=== PATIENT | female | born 1965 | race Caucasian/White ===

== ENCOUNTER 2016-10-16 07:09 | Emergency (ER) | payer OTHER ==
[~2016-10-16] VITALS: Wt 84.0 kg
[~2016-10-16 07:09] MED LIST: CETI5TAB20 PO; FLUT9.9S NASAL; PRED20TA PO
[2016-10-16] MEDS ORDERED: PSEU30TA38 PO (07:39)
[2016-10-16] MEDS ORDERED: BENZ100C70 PO (07:39)
[2016-10-16] MEDS ORDERED: D-ME473S18 PO (07:39)
[2016-10-16] MEDS ORDERED: FLUT9.9S NASAL (07:39)
[2016-10-16] MEDS ORDERED: IBUP-1542 PO (07:39)
--- NOTE | 2016-10-16 11:29 | ERD ---
DATE OF SERVICE: HISTORY OF PRESENT ILLNESS: The patient is a 51-year-old female coming in complaining of a cough wi th a sore throat. Patient states that she has been going on for the last 2 days. She has had a pro ductive cough, no shortness of breath, no fevers, has not taken any medication for symptoms, mild ru nny nose and no ear pain, no headaches, no neck stiffness, no positive sick contacts. PAST MEDICAL HISTORY: Denies. ALLERGIES: DENIES ALLERGIES TO MEDICATION. PAST SURGICAL HISTORY: Cosmetic surgery. SOCIAL HISTORY: Denies. REVIEW OF SYSTEMS: A 12-point review of systems was done. Refer to HPI for positives, all other sy stems negative. PHYSICAL EXAMINATION VITAL SIGNS: Temperature is 97.5, pulse 74, blood pressure is 146/84, respiratory 18, O2 saturation 98% on room air. Pain intensity 8/10. GENERAL: The patient is well-appearing, well-nourished, no acute distress. HEENT: Atraumatic. Conjunctivae are pink. Pupils equal, round, and reactive to light. There is no s cleral icterus. Tympanic membranes clear bilaterally. Oropharynx clear. No nystagmus or photophobia . CHEST: Clear to auscultation bilaterally. There are no rales, wheezes or rhonchi. HEART: Regular rate and rhythm. No murmurs, clicks, rubs or gallops. No S3 or S4. ABDOMEN: Soft, nontender and nondistended. Good bowel sounds. No rebound or guarding. No gross betsy tonitis. No gross organomegaly or masses. No Bergeron sign or McBurney point tenderness. BACK: No midline or flank tenderness. SKIN: There is no apparent rash or petechia. The skin is warm and dry. DIAGNOSIS: Upper respiratory infection. MEDICAL DECISION MAKING: I have low suspicion for pneumonia, low suspicion for bacterial HEENT infe ction, low suspicion for meningitis or sepsis. Patient's vital signs are stable. The patient is no ntoxic appearing. Patient's exam is nonconcerning and I feel that patient's symptoms are likely ass ociated with viral etiology. DISCHARGE: The patient is discharged stable. Patient given prescription for Flonase, Motrin, prome thazine DM, Sudafed and Tessalon and told to follow up with primary care within 1 to 2 days for reev aluation. The patient was told if symptoms progress or worsen to return to the ER. All other quest ions answered at time of discharge. Discharge summary given at the time of departure. Patient unde rstood and complied with plan. Dictated By: JOSE ELIAS SHIPMAN for RODNEY SHEPHERD/NTS Conf#: [id number] DID#: [id number]
== END 2016-10-16 08:06 | disposition home or self-care (01) ==
LOC: FTE 07:09
DX: J06.9 Acute upper respiratory infection, unspecified (principal)
CPT/HCPCS: 99284

== ENCOUNTER 2017-03-13 10:33 | Emergency (ER) | payer OTHER ==
[~2017-03-13] VITALS: Ht 160 cm; Wt 90.0 kg
[~2017-03-13 10:33] MED LIST changes: +BENZ100C70 PO; +D-ME473S18 PO; +IBUP-1542 PO; +PSEU30TA38 PO
[2017-03-13 10:44] VITALS: Ht 160 cm; Wt 90.0 kg
[2017-03-13] MEDS ORDERED: DIPH25CA6 PO (12:16)
[2017-03-13] MEDS ORDERED: PRED20TA PO (12:16)
[2017-03-13] MEDS ORDERED: HC30CR25 TOP (12:16)
--- NOTE | 2017-03-13 12:19 | ERD ---
ER Documentation Chief Complaint Date/Time DATE: 03/13/17 TIME: 12:17 Chief Complaint RASH AND ITCHING HPI This 52-year-old female presents with an itchy rash over the last week or so. She is considering whether she is allergic to a vitamin she is taking. She denies any fevers, cough, shortness of breath. She denies any known previous allergies . ROS All systems reviewed and are negative except as per history of present illness. Medications Home Meds Active Scripts Prednisone* (Prednisone*) 20 Mg Tab, 40 MG PO DAILY for 5 Days, TAB Prov:LESLIE BAIRES MD 03/13/17 Diphenhydramine Hcl* (Diphenhydramine Hcl*) 25 Mg Capsule, 25 MG PO Q6 Y for ITCHING, #20 CAP Prov:LESLIE BAIRES MD 03/13/17 Hydrocortisone* Topical (Hydrocortisone* Topical) 2.5%-28.3 Gm Cream..g., 1 APPLIC TOP BID for 7 Days, #1 TUB Prov:LESLIE BAIRES MD 03/13/17 Ibuprofen* (Motrin*) 600 Mg Tab, 600 MG PO Q6, #30 TAB Prov:GILMAR SHULTZ PA-C 10/16/16 Benzonatate* (Tessalon Perle*) 100 Mg Capsule, 100 MG PO Q8H Y for COUGH, #30 CAP Prov:GILMAR SHULTZ PA-C 10/16/16 Dextromethorphan Hb-Promethazine Hcl (Promethazine DM Syrup) 473 Ml Syrup, 5 ML PO Q6H Y for COUGH, #4 OZ Prov:GILMAR SHULTZ PA-C 10/16/16 Fluticasone Propionate (Flonase Allergy Relief) 9.9 Ml [place].susp, 1 SPRAY NASAL DAILY, #1 BOTTLE TO EACH NOSTRIL Prov:GILMAR SHULTZ PA-C 10/16/16 Pseudoephedrine Hcl* (Pseudoephedrine Hcl*) 30 Mg Tablet, 30 MG PO Q6 Y for CONGESTION, #30 TAB Prov:GILMAR SHULTZ PA-C 10/16/16 Cetirizine Hcl* (Cetirizine Hcl*) 5 Mg Tablet, 5 MG PO DAILY Y for seasonal allergies, #30 TAB Prov:REMBERTO SETH MD 09/01/16 Prednisone* (Prednisone*) 20 Mg Tab, 40 MG PO DAILY for 4 Days, TAB Prov:REMBERTO SETH MD 09/01/16 Fluticasone Propionate (Flonase Allergy Relief) 9.9 Ml [place].susp, 1 SPRAY NASAL BID for 7 Days, #1 BOTTLE TO EACH NOSTRIL Prov:REMBERTO SETH MD 09/01/16 PMhx/Soc Medical and Surgical Hx: pt denies Medical Hx, pt denies Surgical Hx Hx Alcohol Use: No Hx Substance Use: No Hx Tobacco Use: No Smoking Status: Never smoker Physical Exam Vitals Vital Signs Date Time Temp Pulse Resp B/P Pulse Ox O2 Delivery O2 Flow Rate FiO2 03/13/17 10:44 98.1 74 20 138/74 99 Physical Exam Const: [], [id number] per Head: Atraumatic Eyes: Normal Conjunctiva ENT: Normal External Ears, Nose and Mouth. Neck: Full range of motion..~ No meningismus. Resp: Clear to auscultation bilaterally Cardio: Regular rate and rhythm, no murmurs Abd: Soft, non tender, non distended. Normal bowel sounds Skin: No petechiae or purpura. There are scattered areas of excoriated maculopapular rash on the extremities. There is no warmth, induration, streaking or vesicles. There are no palmar lesions Back: No midline or flank tenderness Ext: No cyanosis, or edema Neur: Awake and alert Psych: Normal Mood and Affect Procedures/MDM Patient presents with a nonspecific dermatitis with the clinical appearance of contact dermatitis or likely allergic rash. There is no evidence of anaphylaxis , life-threatening emergent diseases, sepsis or cellulitis. She will treated with hydrocortisone, Benadryl and short course of prednisone. The patient was stable with no new complaints during the ER course. Clinically, there is no current evidence to suggest meningitis, sepsis, acute abdomen, pneumonia, acute coronary syndrome, pulmonary embolism, or any other emergent condition appearing to require further evaluation or hospitalization. The patient should certainly return for any new or worsening symptoms per the aftercare instructions. They should otherwise follow-up with her primary care doctor for reevaluation this week. Departure Diagnosis: Primary Impression: Rash Condition: Stable Patient Instructions: Dermatitis, Non-Specific Referrals: [facility] Usted se art hecho un examen mdico de control que le indica que no est en yaya condicin que requiera tratamiento urgente en el Departamento de Emergencia. Un estudio ms profundo y el tratamiento de guillaume condicin pueden esperar sin ningn riesgo hasta que usted sea atendida/o en el consultorio de guillaume mdico o yaya cl logan. Es responsabilidad suya arreglar yaya iain para el seguimiento del fina. MANEJO DE CONDICIONES NO URGENTES EN EL FUTURO 1) Si usted tiene un mdico de atencin primaria: Usted debera llamar a guillaume mdico de atencin primaria antes de venir al departamento de emergencia. Despus de las horas de consultorio, guillaume doctor o guillaume asociado/a est disponible por telfono. El mdico o enfermero de charlene en el servicio telefnico puede asesorarle por ferny medio para atender el problema, o fina contrario se puede programar yaya iain. 2) Si usted no tiene un mdico de atencin primaria: Llame al mdico o clnica de referencia que aparece abajo ivanna las horas de consultorio para hacer yaya iain para que le vean. CLINICAS: [facility] [phone] [facility] [phone] [id number] [facility] [id number] [facility] [phone] [facility] [phone] [id number] [facility]. [phone] [place] Mar 13, 2017 12:19
== END 2017-03-13 12:51 | disposition home or self-care (01) ==
LOC: FTE 10:33
DX: R21 Rash and other nonspecific skin eruption (principal)
CPT/HCPCS: 99283